=== PATIENT | male | born 1985 | race Caucasian/White ===

== ENCOUNTER 2017-02-17 06:02 | Emergency (ER) | payer SELFPAY ==
[~2017-02-17] VITALS: Ht 188 cm; Wt 80.0 kg
[2017-02-17] MEDS ORDERED: CLINDAMYCIN PHOS 600 MG/4 ML VIAL IM ONE (06:30)
--- NOTE | 2017-02-17 06:43 | PD ---
HPI Chief Complaint: Pain: Acute or Chronic Time Seen by Provider: 06:25 Travel History International Travel<30 days: No Contact w/Intl Traveler<30days: No Traveled to known affect area: No History of Present Illness HPI PATIENT WHILE AT WORK, HE SCRATCHED HIS LEFT ANKLE AND NOW 2 DAYS LATER, THERE' S REDNESS AND INCREASED SWELLING...TETANUS UTD 1 YR AGO PFSH Past Medical History Medical History: Denies Significant Hx Past Surgical History Surgical History: No Previous Surgery Social History Alcohol Use: No Tobacco Use: Yes (1/2 ppd) Substance Use: Yes (in residential treatment facility for opioid abuse) Allergies-Medications (Allergen,Severity, Reaction): Coded Allergies: vancomycin (Verified Adverse Reaction, Mild, 02/19/17) Not an allergy, Patient received dalvance on 02/19/2017 Reported Meds & Prescriptions Reported Meds & Active Scripts Active Keflex (Cephalexin) 500 Mg Cap 500 Mg PO Q6H 10 Days Bactrim DS (Sulfamethoxazole-Trimethoprim) 800-160 Mg Tab 1 Tab PO BID Physical Exam Narrative GENERAL: SKIN: Warm and dry. a healing wound noted with sorrounding erythema, no streaking, no crepitus on palpation, warm and erythematous HEAD: Atraumatic. Normocephalic. EYES: Pupils equal and round. No scleral icterus. No injection or drainage. ENT: No nasal bleeding or discharge. Mucous membranes pink and moist. NECK: Trachea midline. No JVD. CARDIOVASCULAR: Regular rate and rhythm. RESPIRATORY: No accessory muscle use. Clear to auscultation. Breath sounds equal bilaterally. GASTROINTESTINAL: Abdomen soft, non-tender, nondistended. MUSCULOSKELETAL: Extremities without clubbing, cyanosis, or edema. No obvious deformities. NEUROLOGICAL: Awake and alert. No obvious cranial nerve deficits. Motor grossly within normal limits. Five out of 5 muscle strength in the arms and legs. Normal speech. PSYCHIATRIC: Appropriate mood and affect; insight and judgment normal. Data Data Last Documented VS Vital Signs Date Time Temp Pulse Resp B/P (MAP) Pulse Ox O2 Delivery O2 Flow Rate FiO2 02/17/17 09:11 02/17/17 08:20 71 16 98 Room Air Orders Orders Us Leg Venous Doppler (02/17/17 06:26) Clindamycin Inj (Cleocin Inj) (02/17/17 06:30) Ed Discharge Order (02/17/17 08:50) MDM Medical Decision Making Medical Screen Exam Complete: Yes Emergency Medical Condition: Yes Medical Record Reviewed: Yes Differential Diagnosis CELLULITIS V DVT V LYMPHANGITIS Narrative Course patient signed out pending ultrasound r/o dvt. in meantime patinet treated with im abx. Diagnosis Primary Impression: CELLULITIS Patient Instructions: Cellulitis (ED), General Instructions Additional Instructions: YOU ARE ADVISED TO USE MEDICAL STOCKINGS TO HELP REDUCE THE SWELLING ON YOUR LEFT ANKLE Scripts Cephalexin (Keflex) 500 Mg Cap 500 MG PO Q6H for Infection for 10 Days, #40 CAP 0 Refills Prov: Kelly Scales DO 02/17/17 Sulfamethoxazole-Trimethoprim (Bactrim DS) 800-160 Mg Tab 1 TAB PO BID for Infection, #20 TAB 0 Refills Prov: Shorty Echols MD 02/17/17 Disposition: 01 DISCHARGE HOME Condition: Stable Shorty Echols MD Feb 17, 2017 06:43
[2017-02-17] MEDS ORDERED: BACT800T5 PO (07:07)
[2017-02-17] MEDS ORDERED: CEPH-460 PO (08:15)
--- NOTE | 2017-02-17 08:16 | PD ---
Physical Exam Date Seen by Provider: Feb 17, 2017 Data Data Last Documented VS Vital Signs Date Time Temp Pulse Resp B/P (MAP) Pulse Ox O2 Delivery O2 Flow Rate FiO2 02/17/17 08:20 71 16 109/58 (75) 98 Room Air Orders Orders Us Leg Venous Doppler (02/17/17 06:26) Clindamycin Inj (Cleocin Inj) (02/17/17 06:30) MDM Medical Record Reviewed: Yes Supervised Visit with BRANDON: No Differential Diagnosis Differential includes DVT versus cellulitis versus lymphangitis Narrative Course Patient is a 31-year-old male who was signed out to me by Dr. Echols at change of shift. Patient pending US of LLE and disposition of patient. Patient reports that 2 days ago, he was at work and scraped his left ankle against a metal object causing an abrasion. Reports that today, ankle appears swollen and red. Patient reports that his tetanus is up-to-date. Patient has received a dose of clindamycin by Dr. Echols, currently pending ultrasound of his lower extremity. Last Impressions Lower Extremity Ultrasound 02/17/17625 Signed Impressions: Service Date/Time: Friday, February 17, 2017 08:16 - CONCLUSION: No DVT is identified within the left lower extremity. Yoni Long MD Patient instructed to return to the emergency room or his primary care doctor in 48 hours for reevaluation. Patient Also instructed have a repeat ultrasound 1 week if swelling persists. Diagnosis Primary Impression: CELLULITIS Patient Instructions: General Instructions, Cellulitis (ED) Additional Instruction: YOU ARE ADVISED TO USE MEDICAL STOCKINGS TO HELP REDUCE THE SWELLING ON YOUR LEFT ANKLE Please return to the emergency room and 48 hours for reevaluation if symptoms Return to emergency room earlier if symptoms worsen or progress or if he develops fevers or chills Please take all antibiotics as prescribed Have your ultrasound repeated in 1 week if swelling persists Please follow-up with your primary care doctor in 2-3 days Scripts Cephalexin (Keflex) 500 Mg Cap 500 MG PO Q6H for Infection for 10 Days, #40 CAP 0 Refills Prov: Kelly Scales DO 02/17/17 Sulfamethoxazole-Trimethoprim (Bactrim DS) 800-160 Mg Tab 1 TAB PO BID for Infection, #20 TAB 0 Refills Prov: Shorty Echols MD 02/17/17 Disposition: 01 DISCHARGE HOME Condition: Stable Kelly Scales DO Feb 17, 2017 08:16
[2017-02-17 08:20] VITALS: BP 109/58; PULSE 71; RESP 16; O2SAT 98
--- NOTE | 2017-02-17 08:37 | RADRPT ---
EXAM DATE/TIME: 02/17/2017 08:16 [facility] COMPARISON: No previous studies available for comparison. INDICATIONS : Left calf and ankle swelling and redness. MEDICAL HISTORY : Substance use. Tobacco use. Left leg edema. SURGICAL HISTORY : None. ENCOUNTER: Initial ACUITY: 1 day PAIN SCORE: 3/10 LOCATION: Left leg. TECHNIQUE: Venous ultrasound of the leg was performed from the inguinal ligament to the proximal calf. Real-juan e, color Doppler and spectral tracing, compression and augmentation techniques were used. FINDINGS: There is normal compressibility of the deep venous system from the inguinal region to the proximal ca lf. No echogenic clot is seen in the lumen of the common femoral, femoral, popliteal, and posterior tibial veins. There is a normal response of the venous system to proximal and distal augmentation an d respiration. CONCLUSION: No DVT is identified within the left lower extremity. Yoni Long MD on February 17, 2017 at 8:35 Board Certified Radiologist. This report was verified electronically.
== END 2017-02-17 09:12 | disposition home or self-care (01) ==
LOC: NEPC 06:02
DX: L03.116 Cellulitis of left lower limb (principal); S90.512A Abrasion, left ankle, initial encounter; R60.0 Localized edema; F17.200 Nicotine dependence, unspecified, uncomplicated; X58.XXXA Exposure to other specified factors, initial encounter; Y99.0 Civilian activity done for income or pay
CPT/HCPCS: 93971; 96372

== ENCOUNTER 2017-02-18 22:38 | Emergency (ER) | payer SELFPAY ==
[~2017-02-18] VITALS: Ht 188 cm; Wt 85.0 kg
[~2017-02-18 22:38] MED LIST: BACT800T5 PO; CEPH-460 PO
[2017-02-18 22:41] VITALS: BP 121/82; PULSE 99; RESP 16; TEMP 98.1; O2SAT 97
[2017-02-18] MEDS ORDERED: DALBAVANCIN INJ 1,500 MG in DEXTROSE 5% IN WATE 500 ML INJ 500 ML IV STA ×2 (23:51)
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
[2017-02-19] MEDS ORDERED: ASP: Does not meet inpatient admission criteria OTHER ONE
[2017-02-19] MEDS ORDERED: ASP: Only reason for admit - IV antibiotics OTHER ONE
[2017-02-19] MEDS ORDERED: MISCELLANEOUS PHARMACY INFORMATION XX ONE
[2017-02-19] MEDS ORDERED: ASP: No known hypersensitivity to Vanco, Telavancin, Dalbavancin OTHER ONE
[2017-02-19] MEDS ORDERED: ASP: Location of Dalbavancin administration OTHER ONE
[2017-02-19 00:45] LABS: BASOPHIL # 0.1 TH/MM3 (0-0.2); BASOPHIL % 0.6 % (0.0-2.0); EOSINOPHIL # 0.1 TH/MM3 (0-0.4); EOSINOPHIL % 1.1 % (0.0-4.0); HEMATOCRIT 33.9 % (39.0-51.0); HEMO FLAGS DIFF FINAL; LYMPH % 17.9 % (9.0-44.0); LYMPHOCYTE # 1.7 TH/MM3 (1.0-4.8); MEAN CORPUSCULAR HEMOGLOBIN 29.6 PG (27.0-34.0); MEAN CORPUSCULAR HGB CONC 34.4 % (32.0-36.0); MONO % 6.6 % (0.0-8.0); NEUT % 73.8 % (16.0-70.0); PLATELET COUNT 222 TH/MM3 (150-450); RED BLOOD COUNT 3.94 MIL/MM3 (4.50-5.90); RED CELL DISTRIBUTION WIDTH 14.4 % (11.6-17.2); WHITE BLOOD COUNT 9.5 TH/MM3 (4.0-11.0)
[2017-02-19 01:04] LABS: ALKALINE PHOSPHATASE 59 U/L (45-117); TOTAL BILIRUBIN ADULT 0.3 MG/DL (0.2-1.0)
[2017-02-19 01:08] LABS: ALT (GPT) 22 U/L (12-78); ANION GAP 6 MEQ/L (5-15); AST (GOT) 32 U/L (15-37); BICARBONATE 29.6 MEQ/L (21.0-32.0); BLOOD UREA NITROGEN 11 MG/DL (7-18); CHLORIDE 103 MEQ/L (98-107); GLOMERULAR FILTRATION RATE 100 ML/MIN (>89); POTASSIUM 3.8 MEQ/L (3.5-5.1); SODIUM (NA) 139 MEQ/L (136-145)
[2017-02-19 03:27] VITALS: BP 122/66
== END 2017-02-19 03:29 | disposition home or self-care (01) ==
LOC: NEPE 22:38
DX: L03.116 Cellulitis of left lower limb (principal); Z72.0 Tobacco use
CPT/HCPCS: 80053; 85025; 96365; 96366; 99284; J0875; J7060